=== PATIENT | female | born 1980 | race Caucasian/White ===

== ENCOUNTER 2020-09-20 16:54 | Emergency (ER) | payer MEDICAID, OTHER ==
[~2020-09-20] VITALS: Ht 162.6 cm; Wt 104.5 kg
[2020-09-20 18:36] LABS: BASOPHILS % (AUTO) 0.8 % (0.0-2.0); EOSINOPHILS % (AUTO) 2.3 % (1.0-6.0); LYMPHOCYTES # (AUTO) 4.1 K/uL (1.0-4.8); LYMPHOCYTES % (AUTO) 47.1 % (22.0-44.0); MEAN CORPUSCULAR HEMOGLOBIN 11.7 pg (26.0-34.0); MEAN CORPUSCULAR HGB CONC 24.4 G/dL (31.0-37.0); MEAN CORPUSCULAR VOLUME 48 fL (80-100); MONOCYTES % (AUTO) 0.5 % (2.0-9.0); NEUTROPHILS # (AUTO) 4.2 K/uL (1.8-7.7); NEUTROPHILS % (AUTO) 49.3 % (40.0-70.0); RED BLOOD CELL COUNT(AUTO) 5.01 MIL/uL (4.00-5.20); RED CELL DISTRIBUTION WIDTH 28.9 % (11.5-14.5)
[2020-09-20 18:39] LABS: HEMOGLOBIN 5.9 g/dL (12.0-16.0)
[2020-09-20 18:40] LABS: ANION GAP 12 mmol/L (8-16); CARBON DIOXIDE 25 mmol/L (22-29); CHLORIDE 103 mmol/L (98-107); CREATININE 0.64 mg/dL (0.60-1.30); GLOMERULAR FILTR. RATE CALC > 60 mL/min (>60); GLUCOSE,RANDOM 92 mg/dL (70-110); POTASSIUM 3.8 mmol/L (3.5-5.1); SODIUM SERUM 140 mmol/L (136-145); UREA NITROGEN, BLOOD 8 mg/dL (7-18)
[2020-09-20] MEDS ORDERED: DiphenhydrAMINE HCL 25 MG CAPSULE PO ONE (18:45)
[2020-09-20 18:51] LABS: ALANINE AMINOTRANSFERASE 46 U/L (12-78); ALBUMIN 4.2 g/dL (3.4-5.0); ALKALINE PHOSPHATASE 107 U/L (46-116); ASPARTATE AMINOTRANSFERASE 30 U/L (15-37); BILIRUBIN,TOTAL 0.6 mg/dL (0.1-1.0); HCG,QUANTITATIVE < 1 mIU/mL (0-6); TOTAL PROTEIN, SERUM 8.2 g/dL (6.4-8.2)
[2020-09-20 19:01] LABS: PLATELET COUNT (AUTO) 157 K/uL (150-450)
[2020-09-20 19:03] LABS: PATHOLOGY REVIEW, DIFF YES
[2020-09-20 19:13] LABS: COVID AG,FIA SOURCE NASOPHARYNGEAL
[2020-09-20] MEDS ORDERED: ACETAMINOPHEN 500 MG TABLET PO ONE (19:15)
[2020-09-20 19:21] LABS: IRON, SERUM 16 mcg/dL (50-175); TOTAL IRON BINDING CAPACITY 529 mcg/dL (250-450)
[2020-09-20 20:25] VITALS: BP 107/63
[2020-09-20 20:40] VITALS: BP 108/66
[2020-09-20 20:55] VITALS: BP 108/61
[2020-09-20 21:10] VITALS: BP 108/59
[2020-09-20 21:25] VITALS: BP 114/66
== END 2020-09-20 21:54 | disposition home or self-care (01) ==
LOC: EMS 16:54
DX: D64.9 Anemia, unspecified (principal); Z20.822 Contact with and (suspected) exposure to COVID-19
CPT/HCPCS: 36430; 80053; 83540; 83550; 84702; 85025; 86850; 86900; 86901; 86923; 87426; 99285; P9016

== ENCOUNTER 2024-08-19 20:36 | Emergency (ER) | payer MEDICAID, OTHER ==
[~2024-08-19] VITALS: Ht 160 cm; Wt 81.8 kg
[2024-08-19 20:56] VITALS: BP 102/75; PULSE 103; RESP 19; TEMP 98.3; O2SAT 99
[2024-08-19 21:26] LABS: COVID AG,FIA SOURCE NASAL SWAB
[2024-08-19 21:50] LABS: INFLUENZA TYPE A NEGATIVE FOR TYPE A (NEGATIVE); INFLUENZA TYPE B NEGATIVE FOR TYPE B (NEGATIVE)
[2024-08-19 21:51] LABS: SARS-COV2 (COVID) ANTIGEN,FIA Negative (Negative)
[2024-08-20] MEDS ORDERED: CEPH-558 PO (13:56)
== END 2024-08-20 00:21 | disposition left against medical advice (07) ==
LOC: EMS 20:36
DX: R51.9 Headache, unspecified (principal); R53.1 Weakness; F17.210 Nicotine dependence, cigarettes, uncomplicated; Z88.5 Allergy status to narcotic agent; Z20.822 Contact with and (suspected) exposure to COVID-19
CPT/HCPCS: 87804; 99283

== ENCOUNTER 2024-08-20 10:52 | Emergency (ER) | payer OTHER ==
[~2024-08-20] VITALS: Ht 165.1 cm; Wt 70.5 kg
[2024-08-20 11:11] LABS: APPEARANCE,URINE HAZY (CLEAR); BILIRUBIN,URINE NEGATIVE (NEGATIVE); COLOR,URINE YELLOW (YELLOW); GLUCOSE, URINE (UA) 70-100 mg/dL (NEGATIVE); KETONES,URINE NEGATIVE (NEGATIVE); LEUKOCYTE ESTERASE ,URINE LARGE (NEGATIVE); NITRATE,URINE POSITIVE (NEGATIVE); OCCULT BLOOD,URINE MODERATE (NEGATIVE); PH,URINE 7.5 (5.0-8.0); PROTEIN,URINE TRACE mg/dL (NEGATIVE); SPECIFIC GRAVITIY, URINE 1.009 (1.003-1.030); UROBILINOGEN,URINE <=1.0 mg/dL (<=1.0)
[2024-08-20 11:29] LABS: RBC,URINE None Seen /HPF (0-2)
[2024-08-20 11:30] LABS: BACTERIA,URINE Few /HPF (None Seen); SQUAMOUS EPITHELIAL CELL,UR Few /LPF (None Seen)
[2024-08-20] MEDS: CefTRIAXone 1 GM/DEXTROSE 50 ML IV ONE (12:02)
[2024-08-20] MEDS: SODIUM CHLORIDE 0.9% 1,000 ML IV ONE (12:02)
[2024-08-20 12:03] LABS: BASOPHILS % (AUTO) 0.2 % (0.0-2.0); EOSINOPHILS % (AUTO) 0 % (1.0-6.0); HEMATOCRIT 37.2 % (36-46); HEMOGLOBIN 11.9 g/dL (12.0-16.0); LYMPHOCYTES # (AUTO) 1.3 K/uL (1.0-4.8); LYMPHOCYTES % (AUTO) 14.3 % (22.0-44.0); MEAN CORPUSCULAR HEMOGLOBIN 26.3 pg (26.0-34.0); MEAN CORPUSCULAR VOLUME 82 fL (80-100); MONOCYTES # (AUTO) 1.1 K/uL (0.1-1.0); MONOCYTES % (AUTO) 12.2 % (2.0-9.0); NEUTROPHILS # (AUTO) 6.8 K/uL (1.8-7.7); NEUTROPHILS % (AUTO) 73.3 % (40.0-70.0); PLATELET COUNT (AUTO) 236 K/uL (150-450); RED BLOOD CELL COUNT(AUTO) 4.54 MIL/uL (4.00-5.20); WHITE BLOOD COUNT (AUTO) 9.3 K/uL (4.5-11.0)
[2024-08-20 12:04] VITALS: TEMP 99.5
[2024-08-20 12:14] LABS: ANION GAP 8 mmol/L (8-16); CALCIUM, TOTAL 8.9 mg/dL (8.8-10.5); CARBON DIOXIDE 27 mmol/L (22-29); CHLORIDE 96 mmol/L (98-107); CREATININE 0.66 mg/dL (0.60-1.30); GLOMERULAR FILTR. RATE CALC > 60 mL/min (>60); GLUCOSE,RANDOM 239 mg/dL (70-110); SODIUM SERUM 131 mmol/L (136-145); UREA NITROGEN, BLOOD 2 mg/dL (7-18)
[2024-08-20] MEDS ORDERED: CEPH-558 PO (13:56)
[2024-08-20 14:06] VITALS: BP 115/62; PULSE 100; RESP 18; O2SAT 99
== END 2024-08-20 14:25 | disposition home or self-care (01) ==
LOC: EMS 10:58
DX: N39.0 Urinary tract infection, site not specified (principal); Z88.5 Allergy status to narcotic agent
CPT/HCPCS: 99284; 96365; 80048; 81001; 84703; 85025; 87040; 87077; 87086; 36415; J0696; 87186